=== PATIENT | female | born 1970 | race African-American/Black ===

== ENCOUNTER 2020-11-30 10:46 | Emergency (ER) | payer OTHER ==
[2020-11-30 11:40] LABS: HEMOGLOBIN 14.3 gm/dl (12.3-15.3); RED BLOOD COUNT 4.88 M/UL (4.00-5.10); WHITE BLOOD COUNT 5.6 K/UL (4.5-11.0)
[2020-11-30 12:00] LABS: BUN/CREATININE RATIO 23 (0-10)
[2020-11-30] MEDS ORDERED: CYCLOBENZAPRINE10 MG PO (14:01)
== END 2020-11-30 14:20 | disposition home or self-care (01) ==
LOC: ER1 10:46
PROVIDERS: Physician Assistant
DX: M77.9 Enthesopathy, unspecified (principal); I10 Essential (primary) hypertension
CPT/HCPCS: 71045; 73060; 80053; 82550; 82553; 83874; 84484; 85025; 93005; 93971; 96374; 99284; J1885